=== PATIENT | female | born 1985 | race Caucasian/White ===

== ENCOUNTER 2017-12-26 23:55 | Emergency (ER) | payer OTHER ==
[~2017-12-26] VITALS: Ht 157.5 cm; Wt 72.1 kg
[2017-12-27 00:12] VITALS: BP 134/85
[2017-12-27 01:10] LABS: Hepatitis B Surface Antibody Positive
[2017-12-27 01:29] LABS: Hepatitis B Surface Antigen Negative (Negative)
== END 2017-12-27 03:12 | disposition home or self-care (01) ==
LOC: ER 23:58
DX: S69.81XA Other specified injuries of right wrist, hand and finger(s), initial encounter (principal); Z86.19 Personal history of other infectious and parasitic diseases; W22.8XXA Striking against or struck by other objects, initial encounter; Y93.89 Activity, other specified; Y92.89 Other specified places as the place of occurrence of the external cause; Y99.8 Other external cause status
CPT/HCPCS: 36415; 86703; 86706; 86803; 87340